=== PATIENT | male | born 1990 | race Caucasian/White ===

== ENCOUNTER 2018-02-23 12:11 | Emergency (ER) | payer BC ==
--- NOTE | 2018-02-23 12:55 | ED ---
Allergic Reaction/Systemic - HPI Summary HPI Summary: The patient is a 28 y/o M presenting to [facility] with a chief complaint of a possible reoccurring allergic reaction with one episode two days ago and another episode this morning. Prior to the first reaction, he states that he took his medication as usual, which includes Lamictal, lithium, and vitamins. He was on a bus to class when he felt his face get red and diaphoretic. In class , his face and back became very erythematous with hives. He called his psychiatrist, who stated that the reaction could have been from the tilapia he ate the night before. He was instructed to take benadryl, but he did not take it. His symptoms went away by themselves until this morning when they returned with extreme itchiness after taking his medications. His medications have not changed recently, although the Lamictal dosage increased to 400mg about a month ago. His vitamins do not include niacin. He denies dysphagia, throat tightening , and SOB. - History of Current Complaint Chief Complaint: EDAllergicReaction Time Seen by Provider: 02/23/18 12:43 Hx Obtained From: Patient Onset/Duration: Sudden Onset, Started days ago - one episode two days ago, one episode this morning, Resolved Timing: Lasting Hours Severity Initially: Moderate Severity Currently: Mild Pain Intensity: 0 Pain Scale Used: 0-10 Numeric Location: Discrete @ - face and back Character: Hives Aggravating Factor(s): Nothing Alleviating Factor(s): Nothing Associated Signs And Symptoms: Positive: Diaphoresis, Rash - itchy and erythematous hives on face and back, Other: - NEGATIVE: SOB, dysphagia. Negative: Throat Tightening - Allergies/Home Medications Allergies/Adverse Reactions: Allergies Allergy/AdvReac Type Severity Reaction Status Date / Time Unable to Assess Allergy Verified 02/23/18 13:22 Home Medications: Home Medications Lamictal 200 mg PO BID 02/23/18 [History Confirmed 02/23/18] [place] Carbonate 300 mg cap 150 mg PO DAILY 02/23/18 [History Confirmed ] OLANZapine 10 mg PO DAILY 02/23/18 [History Confirmed 02/23/18] PMH/Surg Hx/FS Hx/Imm Hx Endocrine/Hematology History: Denies: Hx Diabetes Respiratory History: Denies: Hx Asthma Sensory History: Denies: Hx Deafness Opthamlomology History: Denies: Hx Legally Blind EENT History: Denies: Hx Deafness Psychiatric History: Reports: Hx Bipolar Disorder - Surgical History Surgery Procedure, Year, and Place: wisdom teeth - Immunization History Immunizations Up to Date: Yes Infectious Disease History: No Infectious Disease History: Denies: Traveled Outside the [place] in Last 30 Days - Family History Known Family History: Positive: Diabetes - Type II Negative: Cardiac Disease, Hypertension - Social History Alcohol Use: None Substance Use Type: Reports: None Smoking Status (MU): Never Smoked Tobacco Review of Systems Positive: Skin Diaphoresis Positive: Other - NEGATIVE: dysphagia, throat tightening Negative: Shortness Of Breath Positive: Rash - erythematous hives, Other - facial and back erythema, all over itchiness All Other Systems Reviewed And Are Negative: Yes Physical Exam - Summary Physical Exam Summary: Appearance: The patient is well-nourished in no acute distress and in no acute pain. Skin: The skin is warm and dry and skin color reflects adequate perfusion. HEENT: The head is normocephalic and atraumatic. The pupils are equal and reactive. The conjunctivae are clear and without drainage. Nares are patent and without drainage. Mouth reveals moist mucous membranes and the throat is without erythema and exudate. The external ears are intact. The ear canals are patent and without drainage. The tympanic membranes are intact. Neck: The neck is supple with full range of motion and non-tender. There are no carotid bruits. There is no neck vein distension. Respiratory: Chest is non-tender. Lungs are clear to auscultation and breath sounds are symmetrical and equal. Cardiovascular: Heart is regular rate and rhythm. There is no murmur or rub auscultated. There is no peripheral edema and pulses are symmetrical and equal. Abdomen: The abdomen is soft and non-tender. There are normal bowel sounds heard in all four quadrants and there is no organomegaly palpated. Musculoskeletal: There is no back tenderness noted. Extremities are non-tender with full range of motion. There is good capillary refill. There is no peripheral edema or calf tenderness elicited. Neurological: Patient is alert and oriented to person, place and time. The patient has symmetrical motor strength in all four extremities. Cranial nerves are grossly intact. Deep tendon reflexes are symmetrical and equal in all four extremities. Psychiatric: The patient has an appropriate affect and does not exhibit any anxiety or depression. Triage Information Reviewed: Yes Vital Signs On Initial Exam: Initial Vitals Temp Pulse Resp BP Pulse Ox 96.8 F 56 18 124/78 100 02/23/18 12:22 02/23/18 12:22 02/23/18 12:22 02/23/18 12:22 02/23/18 12:22 Vital Signs Reviewed: Yes Diagnostics - Vital Signs Vital Signs Temp Pulse Resp BP Pulse Ox 02/23/18 12:22 96.8 F 56 18 124/78 100 - Laboratory Lab Statement: Any lab studies that have been ordered have been reviewed, and results considered in the medical decision making process. Re-Evaluation - Re-Evaluation First Eval Re-Evaluation Time: 14:20 Change: Improved Comment: Patient is feeling better. He will be discharged home. Allergic Reaction Course/Dx - Course Course Of Treatment: Mr. Allred arrived to the emergency department stable with minimal symptoms. He complained of diffuse itching and that he had been diffusely red previously at home. His physical exam was unremarkable here and his symptomatology improved with Benadryl. This happened briefly 2 days ago also and it's unclear as to the etiology. He's been on the same medications for a long period of time and none of them are ROS inhibitor's. I recommended symptomatic treatment and follow-up with his prescriber - Diagnoses Provider Diagnoses: Allergic reaction Discharge - Sign-Out/Discharge Documenting (check all that apply): Patient Departure - Patient will be discharged home. - Discharge Plan Condition: Stable Disposition: HOME Patient Education Materials: General Allergic Reaction (ED) Referrals: [facility] [Outside] - 3 Days Additional Instructions: Follow up with your primary care physician in 2-3 days. Return to the emergency department if any new or worsening symptoms occur. - Billing Disposition and Condition Condition: STABLE Disposition: Home - Attestation Statements Document Initiated by Rozinaibe: Yes Documenting Scribe: Kassi Parrish Provider For Whom Archie is Documenting (Include Credential): Dr. Barak Damon MD Scribe Attestation: Kassi Calixto scribed for Dr. Barak Damon MD on 02/23/18 at 1524. Scribe Documentation Reviewed: Yes Provider Attestation: The documentation as recorded by the Kassi santana accurately reflects the service I personally performed and the decisions made by me, Dr. Barak Damon MD
[2018-02-23] MEDS ORDERED: diPHENhydraMINE PO* 50 MG PO ONE (12:57)
[2018-02-23 14:34] VITALS: BP 113/75
== END 2018-02-23 14:34 | disposition home or self-care (01) ==
LOC: ED 12:11
DX: T78.40XA Allergy, unspecified, initial encounter (principal); X58.XXXA Exposure to other specified factors, initial encounter; Y92.9 Unspecified place or not applicable; F31.9 Bipolar disorder, unspecified
CPT/HCPCS: 99282; A9270-GY